=== PATIENT | female | born 1990 | race Caucasian/White ===

== ENCOUNTER 2016-05-13 05:59 | Inpatient (IN) | payer OTHER ==
[2016-05-13] VITALS (43 sets, daily range): BP systolic 88–122; BP diastolic 51–96; PULSE 65–184; RESP 18–20; TEMP 97.8–98.5; O2SAT 99–100
[~2016-05-13] VITALS: Ht 172.7 cm; Wt 88.0 kg
[~2016-05-13 05:59] MED LIST: AMOX875 PO; IPRA0.03
[2016-05-13 07:45] LABS: AUTOMATED NEUTROPHIL # 5.1 TH/MM3 (1.8-7.7); BASOPHIL % 0.3 % (0.0-2.0); EOSINOPHIL # 0.1 TH/MM3 (0-0.4); HEMO FLAGS DIFF FINAL; LYMPH % 22.7 % (9.0-44.0); LYMPHOCYTE # 1.7 TH/MM3 (1.0-4.8); MEAN CELL VOLUME 79.4 FL (80.0-100.0); MEAN CORPUSCULAR HEMOGLOBIN 25.6 PG (27.0-34.0); MEAN CORPUSCULAR HGB CONC 32.2 % (32.0-36.0); MONO % 10.4 % (0.0-8.0); NEUT % 65.6 % (16.0-70.0); PLATELET COUNT 133 TH/MM3 (150-450); RED BLOOD COUNT 4.27 MIL/MM3 (4.00-5.30); RED CELL DISTRIBUTION WIDTH 17.1 % (11.6-17.2); WHITE BLOOD COUNT 7.7 TH/MM3 (4.0-11.0)
[2016-05-13] MEDS ORDERED: NS 1000 ML IV PRN (07:45)
[2016-05-13] MEDS ORDERED: LIDOCAINE HCL 1% 50 ML VIAL I-DERMAL PRN (07:45)
[2016-05-13] MEDS ORDERED: ONDANSETRON HCL 4 MG/2 ML VIAL IV PRN (07:45)
[2016-05-13] MEDS ORDERED: CITRIC ACID-SODIUM CITRATE LIQ 30 ML UDC PO SCH (07:45)
[2016-05-13] MEDS ORDERED: NS 500 ML BOLUS IV PRN (07:45)
[2016-05-13] MEDS ORDERED: LACTATED RINGER'S 1000 ML IV SCH (07:45)
[2016-05-13] MEDS ORDERED: LACTATED RINGER'S 1000 ML BOLUS IV PRN (07:45)
[2016-05-13 07:55] LABS: BACTERIA, URINE RARE /hpf; BLOOD, URINE NEG (NEG); GLUCOSE,URINE 300 mg/dL (NEG); KETONE, URINE NEG (NEG); MUCUS URINE FEW /lpf (OCC); NITRITE,URINE NEG (NEG); PH, URINE 7.5 (5.0-8.5); SQUAMOUS EPITHELIAL CELL URINE 8 /hpf (0-5); TRANSITIONAL EPI CELLS, URINE <1 /hpf; URINE COLOR LIGHT-YELLOW (YELLW/STRAW)
[2016-05-13 07:57] LABS: COMMENT (UR) CULTURE INDICATED; CULTURE IF INDICATED CULTURE INDICATED
[2016-05-13] MEDS ORDERED: OXYTOCIN 30 UNITS 500ML PREMIX IV ONE (08:00)
[2016-05-13] MEDS ORDERED: LIDOCAINE HCL 1% 50 ML VIAL INFIL PRN (08:00)
[2016-05-13] MEDS ORDERED: OXYTOCIN 30 UNITS/NS 500ML PREMIX IV SCH (08:00)
[2016-05-13] MEDS ORDERED: MINERAL OIL 10 ML VIAL TOPICAL PRN (08:00)
[2016-05-13] MEDS ORDERED: fentaNYL 2MCG-BUPIV 0.125% INJ 100 ML ONE (08:11)
[2016-05-13] MEDS ORDERED: ePHEDrine/NS 25 MG/5 ML SYR ONE (08:12)
[2016-05-13] MEDS ORDERED: PREN29TA PO (08:36)
[2016-05-13] MEDS ORDERED: FERR1TAB36 PO (08:37)
[2016-05-13] MEDS ORDERED: PERI8.6T PO (08:38)
[2016-05-13] MEDS ORDERED: NO SYSTEM NARCOTICS PRN (10:15)
[2016-05-13] MEDS ORDERED: fentaNYL 2MCG-BUPIV 0.125% 100 ML EPIDURAL SCH (10:15)
[2016-05-13] MEDS ORDERED: DO NOT ADMINISTER ANTICOAGULANTS PRN (10:15)
[2016-05-13] MEDS ORDERED: ePHEDrine/NS 25 MG/5 ML SYR IV PRN (10:15)
--- NOTE | 2016-05-13 12:32 | MH ---
cc: Trinity GIFFORD MD DATE OF ADMISSION: 05/13/2016 REASON FOR ADMISSION 1. Intrauterine at 39 weeks and 3 days. 2. Inducible cervix. HISTORY OF PRESENT ILLNESS Ms. Reid is a 26-year-old white female, para 1-0-0-1, whose last menstrual period and ultrasound put her due date as last Friday. She comes in today for elective induction. She understands the risks and benefits. Her Mandujano score is excellent. She denies any rupture of membranes, bleeding. She reports good movement. OBSTETRICAL HISTORY She is para 1-0-0-1. She had one without complications. Her blood type is B+. PAST ALTO SINGER HISTORY Her Pap smear was negative in November. Cultures are negative in November. PAST MEDICAL HISTORY Her past medical history is remarkable for anemia. PAST SURGICAL HISTORY Her past surgical history is negative. SOCIAL HISTORY She is . She does not smoke, drink or take drugs. She works as a teacher. FAMILY HISTORY Family history is noncontributory. ALLERGIES No known drug allergies. MEDICATIONS Current medications are vitamins and iron. REVIEW OF SYSTEMS She denies any headache, scotoma, no shortness of breath. No chest pain or pressure. She reports good movement. Good bowel and bladder function. PHYSICAL EXAMINATION GENERAL: A well-developed, well-nourished female, in no acute distress, laying comfortably in bed. HEENT: Normocephalic, atraumatic. NECK: Supple. Trachea is in the midline. No thyromegaly or adenopathy. CHEST: Clear to auscultation and percussion. HEART: Heart has a regular rate and rhythm. ABDOMEN: The abdomen is gravid, nontender. PELVIC: External genitalia is normal. The cervix is 3-4 cm, 20% effaced, posterior soft. EXTREMITIES: No clubbing, cyanosis, edema. ASSESSMENT/PLAN 1. Intrauterine at 39 and 1/2 weeks, for induction. 2. Negative GBS. 3. Go ahead and start her on some Pitocin. Rupture of membranes was performed with clear fluid. Trinity Gifford MD RJV/TLL /9:56 AM /12:20 PM
--- NOTE | 2016-05-13 12:46 | PD.OB.DELI ---
Delivery Date: May 13, 2016 Anesthesia: Epidural Episiotomy: None, Midline Vaginal Delivery: Normal Presentation: Occiput anterior Nuchal Cord: x2 Delayed cord clamping (45 sec): Yes Infant: Male One Minute : 8 Five Minute : 9 Weight: 8/14 Infant Care: Suctioned, Spontaneous crying, Responded to stimulation Placenta: Spontaneous delivery, Intact, Not Intact, Uterus explored +, 3 vessel cord Laceration: 2 deg Repair: Chromic running Additional Information nice delivery of baby Gabriel second degree mle extended a bit and repair was beautiful Trinity Gifford MD May 13, 2016 12:46
[2016-05-13] MEDS ORDERED: ACETAMINOPHEN 325 MG TAB PO PRN (13:00)
[2016-05-13] MEDS ORDERED: ZOLPIDEM TARTRATE 5 MG TAB PO PRN (13:00)
[2016-05-13] MEDS ORDERED: ONDANSETRON ODT 4 MG TAB PO PRN (13:00)
[2016-05-13] MEDS ORDERED: ALUMINUM/MAGNESIUM/SIMETH 30 ML CUP PO PRN (13:00)
[2016-05-13] MEDS ORDERED: BENZOCAINE 20% TOPICAL SPRAY 60 ML CAN TOPICAL PRN (13:00)
[2016-05-13] MEDS ORDERED: SODIUM CHLORIDE 0.9% FLUSH 10 ML FLUSH IV FLUSH PRN (13:00)
[2016-05-13] MEDS: IBUPROFEN 600 MG TAB PO PRN ×2 (14:03→21:00)
[2016-05-13] MEDS: WITCH HAZEL 50%/GLYCERIN 12.5% 40 PAD JAR TOPICAL PRN (15:36)
[2016-05-13] MEDS ORDERED: DIPHTH/TETANUS/ACEL PERTUSSIS (BOOSTER) 0.5 ML VIAL/PFS IM ONE (16:00)
[2016-05-13] MEDS ORDERED: MEASLES, MUMPS, RUBELLA VACCINE 0.5 ML VIAL SQ ONE (16:00)
[2016-05-13] MEDS: oxyCODONE/ACETAMINOPHEN 5 MG/325 MG TAB PO PRN ×2 (16:42→21:00)
[2016-05-13] MEDS: DOCUSATE SODIUM 50 MG/SENNA 8.6 MG TAB PO PRN (21:00)
[2016-05-13] MEDS ORDERED: SODIUM CHLORIDE 0.9% FLUSH 10 ML FLUSH IV FLUSH SCH (21:00)
[2016-05-14] MEDS: oxyCODONE/ACETAMINOPHEN 10 MG/325 MG TAB PO PRN ×5 (01:24→22:27)
[2016-05-14] MEDS: IBUPROFEN 600 MG TAB PO PRN ×3 (04:32→18:03)
--- NOTE | 2016-05-14 08:11 | HHI.OB ---
Subjective Post Day: 1 Remarks Doing well, pain is controlled Bleeding is normal. Tolerating diet well. Objective Vitals/I&O Vital Signs Date Time Temp Pulse Resp B/P Pulse Ox O2 Delivery O2 Flow Rate FiO2 05/13/16 14:21 101 97/60 05/13/16 13:55 20 05/13/16 13:45 78 104/62 05/13/16 13:30 88 101/85 05/13/16 13:25 20 05/13/16 13:16 82 108/65 05/13/16 13:10 18 05/13/16 13:00 85 117/82 05/13/16 12:55 98.5 18 05/13/16 12:47 150 112/69 05/13/16 12:30 96 94/71 05/13/16 12:17 184 88/67 05/13/16 12:01 98 110/96 05/13/16 11:45 82 100/66 05/13/16 11:30 74 95/57 05/13/16 11:27 18 05/13/16 11:15 69 97/51 05/13/16 11:00 65 104/66 05/13/16 10:45 18 05/13/16 10:45 68 107/69 05/13/16 10:32 70 103/57 05/13/16 10:30 100 05/13/16 10:30 72 05/13/16 10:25 81 05/13/16 10:25 100 05/13/16 10:20 99 05/13/16 10:20 67 05/13/16 10:15 68 112/71 05/13/16 10:15 100 05/13/16 10:15 70 05/13/16 10:10 76 05/13/16 10:10 100 05/13/16 10:05 99 05/13/16 10:05 71 05/13/16 10:00 77 108/73 100 05/13/16 10:00 70 05/13/16 09:55 75 100 05/13/16 09:50 70 100 05/13/16 09:45 97.8 76 18 113/68 100 05/13/16 09:45 73 05/13/16 09:40 70 110/66 05/13/16 09:40 100 05/13/16 09:40 77 05/13/16 09:36 73 114/59 05/13/16 09:35 77 05/13/16 09:35 100 05/13/16 09:33 73 122/82 05/13/16 09:31 74 111/73 05/13/16 09:30 100 05/13/16 09:30 77 05/13/16 09:15 79 117/76 05/13/16 09:00 69 113/72 05/13/16 08:46 90 110/82 05/13/16 08:30 80 95/53 05/13/16 08:15 83 121/68 Objective Remarks GENERAL: Well-nourished, well-developed patient. CARDIOVASCULAR: Regular rate and rhythm without murmurs, gallops, or rubs. RESPIRATORY: Breath sounds equal bilaterally. No accessory muscle use. ABDOMEN/GI: Abdomen soft, non-tender. Fundus: Firm, non-tender at umbilicus. GENITOURINARY: Light to moderate bleeding. EXTREMITIES: No cyanosis or edema, non-tender, without signs of DVT. Medications and IVs Current Medications Medications (Trade) Dose Ordered Sig/Rich Route Start Time Stop Time Status Last Admin (NS Flush) 2 ml BID IV FLUSH 05/13/16 21:00 (NS Flush) 2 ml UNSCH PRN IV FLUSH 05/13/16 13:00 (Tylenol) 650 mg Q4H PRN PO 05/13/16 13:00 (Motrin) 600 mg Q6H PRN PO 05/13/16 13:00 05/14/16 04:32 (Percocet 5-325 Mg) 1 tab Q4H PRN PO 05/13/16 13:00 05/13/16 21:00 (Americaine 20% Top Spr) 1 spray Q4H PRN TOPICAL 05/13/16 13:00 05/13/16 15:36 (Tucks Pads) 1 applic QID PRN TOPICAL 05/13/16 13:00 05/13/16 15:36 (Riana-Colace) 2 tab Q12H PRN PO 05/13/16 13:00 05/13/16 21:00 (Ambien) 5 mg HS PRN PO 05/13/16 13:00 (Mag-Al Plus Susp Liq) 15 ml Q8H PRN PO 05/13/16 13:00 (Zofran Odt) 4 mg Q6H PRN PO 05/13/16 13:00 (Percocet 10-325 Mg) 1 tab Q4H PRN PO 05/13/16 19:45 05/14/16 01:24 Assessment/Plan Assessment and Plan PPD #1 Doing well, Baby having some breathing problems. Trinity Gifford MD May 14, 2016 08:11
[2016-05-14] MEDS: DOCUSATE SODIUM 50 MG/SENNA 8.6 MG TAB PO PRN (11:54)
--- NOTE | 2016-05-14 13:37 | HHI.DCPOC ---
Discharge Care Plan Diagnosis: (1) Vaginal delivery (2) Anemia Your Health Problems Are: Vaginal delivery (C) Additional Problems NEED TO TAKE ORAL DAILY IRON WHEN YOU ARE NO LONGER TAKING PAIN MEDICATION Report Symptoms to Your Doctor -Temperate above 100.5 degrees -Redness, of incision or excessive or foul smelling drainage -Unusual pain or calf pain -Increased vaginal bleeding -Painful or difficulty urinating -Feelings of extreme sadness or anxiety after 2 weeks Goals to Promote Your Health * To prevent worsening of your condition and complications * To maintain your health at the optimal level Directions to Meet Your Goals Take your medications as prescribed Follow your dietary instruction Follow activity as directed Ensure plenty of rest for recovery Drink fluids for hydration Keep your appointments as scheduled Take your immunizations and boosters as scheduled If your symptoms worsen call your PCP, if no PCP go to Urgent Care Center or Emergency Room Smoking is Dangerous to Your Health. Avoid second hand smoke Call the 24-hour crisis hotline for domestic abuse at Abigail Canela May 14, 2016 13:37
[2016-05-14] MEDS ORDERED: IBUP-232 PO (17:36)
[2016-05-14] MEDS ORDERED: OXYC1TAB36 PO (17:36)
--- NOTE | 2016-05-14 17:37 | HHI.DCPOC ---
Discharge Care Plan Report Symptoms to Your Doctor -Temperate above 100.5 degrees -Redness, of incision or excessive or foul smelling drainage -Unusual pain or calf pain -Increased vaginal bleeding -Painful or difficulty urinating -Feelings of extreme sadness or anxiety after 2 weeks Goals to Promote Your Health * To prevent worsening of your condition and complications * To maintain your health at the optimal level Directions to Meet Your Goals Take your medications as prescribed Follow your dietary instruction Follow activity as directed Ensure plenty of rest for recovery Drink fluids for hydration Keep your appointments as scheduled Take your immunizations and boosters as scheduled If your symptoms worsen call your PCP, if no PCP go to Urgent Care Center or Emergency Room Smoking is Dangerous to Your Health. Avoid second hand smoke Call the 24-hour crisis hotline for domestic abuse at Trinity Gifford MD May 14, 2016 17:37
[2016-05-14 19:54] VITALS: BP 102/61; PULSE 79; RESP 18; TEMP 98.2
[2016-05-14] MEDS: PRAMOXINE 1% RECTAL FOAM 15 GM CAN RECTAL SCH (22:27)
[2016-05-15] MEDS: DOCUSATE SODIUM 50 MG/SENNA 8.6 MG TAB PO PRN (00:17)
[2016-05-15] MEDS: IBUPROFEN 600 MG TAB PO PRN ×2 (00:18→06:22)
[2016-05-15] MEDS: oxyCODONE/ACETAMINOPHEN 10 MG/325 MG TAB PO PRN (06:21)
[2016-05-15] MEDS: PRAMOXINE 1% RECTAL FOAM 15 GM CAN RECTAL SCH (06:22)
[2016-05-15] MEDS: WITCH HAZEL 50%/GLYCERIN 12.5% 40 PAD JAR TOPICAL PRN (08:52)
--- NOTE | 2016-05-15 11:25 | HHI.OB ---
Subjective Post Day: 2 Objective Vitals/I&O Vital Signs Date Time Temp Pulse Resp B/P Pulse Ox O2 Delivery O2 Flow Rate FiO2 05/14/16 19:54 79 18 102/61 05/14/16 19:54 98.2 Objective Remarks GENERAL: Well-nourished, well-developed patient. CARDIOVASCULAR: Regular rate and rhythm without murmurs, gallops, or rubs. RESPIRATORY: Breath sounds equal bilaterally. No accessory muscle use. ABDOMEN/GI: Abdomen soft, non-tender. Fundus: Firm, non-tender at umbilicus. GENITOURINARY: Light to moderate bleeding. EXTREMITIES: No cyanosis or edema, non-tender, without signs of DVT. Medications and IVs Current Medications Medications (Trade) Dose Ordered Sig/Rich Route Start Time Stop Time Status Last Admin (NS Flush) 2 ml BID IV FLUSH 05/13/16 21:00 (NS Flush) 2 ml UNSCH PRN IV FLUSH 05/13/16 13:00 (Tylenol) 650 mg Q4H PRN PO 05/13/16 13:00 (Motrin) 600 mg Q6H PRN PO 05/13/16 13:00 05/15/16 06:22 (Percocet 5-325 Mg) 1 tab Q4H PRN PO 05/13/16 13:00 05/13/16 21:00 (Americaine 20% Top Spr) 1 spray Q4H PRN TOPICAL 05/13/16 13:00 05/13/16 15:36 (Tucks Pads) 1 applic QID PRN TOPICAL 05/13/16 13:00 05/15/16 08:52 (Riana-Colace) 2 tab Q12H PRN PO 05/13/16 13:00 05/15/16 00:17 (Ambien) 5 mg HS PRN PO 05/13/16 13:00 (Mag-Al Plus Susp Liq) 15 ml Q8H PRN PO 05/13/16 13:00 (Zofran Odt) 4 mg Q6H PRN PO 05/13/16 13:00 (Percocet 10-325 Mg) 1 tab Q4H PRN PO 05/13/16 19:45 05/15/16 06:21 Assessment/Plan Assessment and Plan PPD #2 Doing well, baby in room doing well pain well managed with oral pain medication routine pp care Discharge Planning dc home today Abigail Canela May 15, 2016 11:25
--- NOTE | 2016-05-15 11:33 | HHI.DS ---
Admission Date May 13, 2016 at 05:59 Discharge Date: May 15, 2016 Admitting Diagnosis 39 week induction Diagnosis: (1) Vaginal delivery Diagnosis: Principal (2) Anemia Diagnosis: Secondary Delivery Date: May 13, 2016 Vaginal Delivery: Normal : Male Brief History 39 week iup induction arom -pitocin Hospital Course routine care Pt Condition on Discharge: Good Discharge Disposition: Discharge Home Discharge Instructions Diet Instructions: As Tolerated, No Restrictions Additional Diet Instructions: Drink at least 8 - 16 oz bottles of water a day Activities You Can Perform: Shower Only-No Bath, Sitz Bath Activities to Avoid: Lifting/Bending, Sexual Activity Additional Activity Instruc.: No driving until off pain medications Do not lift anything heavier than your baby in an infant carrier Follow up Referrals: [facility] - 2 Weeks @ [facility] [place] Medications: Ibuprofen (Ibuprofen) 600 Mg Tab 600 MG PO Q6H PRN pain #30 Ref 1 TAB Oxycodone-Acetaminophen (Oxycodone-Acetaminophen) 10-325 mg Tab 1 TAB PO Q4H moderate pain #15 TAB Continued Medications: Ipratropium Skipwith (Nasal) (Ipratropium Skipwith) 0.03 % Spr 2 SPRAY NA TID PRN NASAL CONGESTION #1 SPR Vit-Iron Carbonyl ( Plus Iron 29-1 mg) 1 Tab Tab 1 TAB PO DAILY Nutritional Supplement #30 Ref 0 TAB Sennosides-Docusate Sodium (Riana-Colace) 8.6-50 Mg Tab 1 TAB PO BID PRN Constipation #60 Ref 0 TAB Discontinued Medications: Amoxicillin (Amoxicillin) 875 Mg Tab 875 MG PO BID #20 TAB Ferrous Sulfate (Iron) 325 Mg Tab 325 MG PO DAILY Take Nutritional Supplement Ref 0 TAB Abigail Canela May 15, 2016 11:33
== END 2016-05-15 11:28 | disposition home or self-care (01) | DRG 775 ==
LOC: H2EA 05:59 → H1EA 14:37
PROVIDERS: ADMIT Obstetrics & Gynecology; ATTEND Obstetrics & Gynecology
PROC: 0KQM0ZZ Repair Perineum Muscle, Open Approach (ICD-10-PCS; principal; 2016-05-13)
PROC: 10E0XZZ Delivery of Products of Conception, External Approach (ICD-10-PCS; 2016-05-13)
PROC: 3E0R3CZ (ICD-10-PCS; 2016-05-13)
PROC: 00HU33Z Insertion of Infusion Device into Spinal Canal, Percutaneous Approach (ICD-10-PCS; 2016-05-13)
DX: O70.1 Second degree perineal laceration during delivery (principal); Z37.0 Single live birth; D64.9 Anemia, unspecified; O69.81X0 Labor and delivery complicated by cord around neck, without compression, not applicable or unspecified; O99.02 Anemia complicating childbirth; Z3A.39 39 weeks gestation of pregnancy
CPT/HCPCS: 59025; 81001; 85025; 86850; 86900; 86901; 87086; 90715; J2590; J3010; J7120